=== PATIENT | female | born 1950 | race Caucasian/White ===

== ENCOUNTER → 2021-12-06 11:09 | Outpatient (CLI) | payer MEDICARE, SELFPAY ==
--- NOTE | ~2021-12-06 | XR_ITS ---
EXAMINATION: XR shoulder RT min 2V DATE: 12/06/2021 12:19 INDICATION: Acute onset right shoulder pain TECHNIQUE: AP internally and externally rotated, AP oblique externally rotated and axillary views of the right shoulder were obtained. COMPARISON: None FINDINGS: Old healed mid diaphyseal fracture of the right clavicle which is healed with 35 degrees apex cephala d angulation. Alignment is otherwise normal. No other fractures identified. Glenohumeral joint is nor mal. Mild acromioclavicular osteoarthritis. Soft tissues are unremarkable. The visualized portions of the lungs are clear. IMPRESSION: Mild right acromioclavicular osteoarthritis and old healed right clavicle fracture. Reviewed, dictated and finalized at location B. IMPRESSION: Mild right acromioclavicular osteoarthritis and old healed right clavicle fract ure.
--- NOTE | ~2021-12-06 | XR_ITS ---
XR_[id number]_CR 12/06/2021 12:19 Indication: Neck pain Procedure: 3 views cervical spine Comparison: No prior studies for comparison. Findings: There is degenerative disc disease at C3-4, C4-5, C5-6 and C6-7. There is straightening of cervical lordosis with degenerative retrolisthesis at C4-5. No prevertebral soft tissue swelling. Jacobo g apices are normal. Odontoid process within normal limits. Impression: 1: Moderate cervical spondylosis. Reviewed, dictated and finalized at location A. Impression: 1: Moderate cervical spondylosis.
--- NOTE | ~2021-12-06 | XR_ITS ---
EXAMINATION: XR shoulder LT min 2V DATE: 12/06/2021 12:19 INDICATION: Acute onset left shoulder pain TECHNIQUE: AP internally and externally rotated, AP oblique externally rotated and axillary views of the left shoulder were obtained. COMPARISON: None FINDINGS: Normal alignment. No fracture. Glenohumeral joint is normal. Mild acromioclavicular osteoarthritis. Soft tissues are unremarkable. Visualized portion of the lungs are clear. IMPRESSION: Mild left acromioclavicular osteoarthritis. Reviewed, dictated and finalized at location B.
== END ==
PROVIDERS: PCP Family Medicine; Visit Provider Family Medicine
DX: M54.9 Dorsalgia, unspecified (principal); M25.511 Pain in right shoulder; M25.512 Pain in left shoulder; M47.812 Spondylosis without myelopathy or radiculopathy, cervical region; M19.012 Primary osteoarthritis, left shoulder; M19.011 Primary osteoarthritis, right shoulder; Z87.81 Personal history of (healed) traumatic fracture
CPT/HCPCS: 72040; 73030

== ENCOUNTER → 2022-02-05 15:16 | Outpatient (CLI) | payer MEDICARE, SELFPAY ==
--- NOTE | ~2022-02-05 | MM_ITS ---
EXAMINATION: MM screening clifford BI w dipti HISTORY: Screening mammogram; status post left partial mastectomy for breast cancer TECHNIQUE: Craniocaudal and mediolateral oblique 3-D tomosynthesis images were obtained and synthetic 2-D images were generated. CAD analysis was submitted and interpreted. COMPARISON: 02/02/2019 MRI bilateral breast examination 12/17/2018 bilateral diagnostic mammography and complete left breast ultrasound 11/19/2017 bilateral screening mammogram BREAST PARENCHYMAL COMPOSITION: The breasts are heterogeneously dense, which may obscure small masses . FINDINGS: Stable asymmetry and retraction in the upper outer quadrant of the left breast since 11/20/19 18. There is no evidence of suspicious mass, calcification, or new architectural distortion to sugges t malignancy in either breast. There has been no suspicious interval change. IMPRESSION: 1. No mammographic evidence of malignancy. 2. Recommend routine screening mammography in one year. BI-RADS Category 2: Benign finding(s). Reviewed, dictated and finalized at location A.
== END ==
PROVIDERS: PCP Family Medicine; Visit Provider Family Medicine
DX: Z12.31 Encounter for screening mammogram for malignant neoplasm of breast (principal)
CPT/HCPCS: 77063; 77067

== ENCOUNTER 2022-03-26 11:27 | Observation (INO) | payer MEDICARE, SELFPAY ==
[2022-03-26] VITALS (23 sets, daily range): BP systolic 122–225; BP diastolic 52–90; PULSE 58–91; RESP 12–27; TEMP 36.4–36.6; O2SAT 98–100; BMI 24.5
--- NOTE | ~2022-03-26 | US_ITS ---
EXAMINATION: US retroperitoneal duplex ltd DATE: 03/27/2022 09:39 INDICATION: Hypertension. TECHNIQUE: Multiple grayscale, color Doppler, and pulsed Doppler images of the kidneys and renal zoya aparna were obtained. COMPARISON: CT abdomen and pelvis 03/14/2012 FINDINGS: The aorta peak systolic velocity is 117 cm/s. The right renal artery peak systolic velocity is 99 cm/ s in the proximal segment, 119 cm/s in the mid segment, and 119 cm/s in the distal segment. The left renal artery peak systolic velocity is 73 cm/s in the proximal segment, 97 cm/s in the mid segment, a nd 68 cm/s in the distal segment. IMPRESSION: 1. No Doppler evidence of renal artery stenosis. The prior CT similarly shows no significant renal a rtery stenosis. Reviewed, dictated and finalized at location A. IMPRESSION: 1. No Doppler evidence of renal artery stenosis. The prior CT similarly shows no significant renal artery stenosis.
--- NOTE | ~2022-03-26 | XR_ITS ---
EXAMINATION: XR chest 2V DATE: 03/26/2022 13:44 INDICATION: Dizziness. High blood pressure. TECHNIQUE: Frontal and lateral views of the chest were obtained. COMPARISON: Chest single view 09/19/2005, CT abdomen and pelvis 03/14/2012 FINDINGS: There is mild scarring at right lung apex. No pleural effusion or pneumothorax. The heart s ize is normal. There are gallstones in the gallbladder. IMPRESSION: 1. Mild scarring at right lung apex. 2. Cholelithiasis. Reviewed, dictated and finalized at location A.
--- NOTE | 2022-03-26 13:01 | ECG_ITS ---
Measurements Intervals [place] Rate: 61 P: 31 RI: 147 QRS: -6 QRSD: 93 T: 10 QT: 418 QTc: 422 Interpretive Statements SINUS RHYTHM VOLTAGE CRITERIA FOR LVH MINIMAL Q WAVES- HIGH LATERAL LEADS BORDERLINE T WAVE ABNORMALITY- INFERIOR LEADS BORDERLINE ECG NO PREVIOUS ECG AVAILABLE FOR COMPARISON Electronically Signed On 03-26-2022 14:25:33 CDT by Eze Ly D.O.
[2022-03-26 13:04] LABS: Basophils Absolute Auto 0.1 K/mm3 (0.0-0.1); Basophils Percent Auto 0.6 % (0.2-1.2); Eosinophils Absolute Auto 0.2 K/mm3 (0-0.3); Eosinophils Percent Auto 2.2 % (0-4.4); Hemoglobin 12.2 g/dL (12.0-15.0); Immature Granulocyte Absolute 0.05 K/mm3 (0.00-0.031); Immature Granulocyte Percent A 0.5 % (0-0.5); Lymphocytes Absolute Auto 3.57 K/mm3 (0.9-3.2); Lymphocytes Percent Auto 33.1 % (18.3-44.2); Mean Corpuscular Hemoglobin 28.2 pg (26-34); Mean Corpuscular Volume 85.6 fl (80-100); Mean Platelet Volume 9.8 fl (7.4-10.4); Monocytes Absolute Auto 0.9 K/mm3 (0.1-0.6); Monocytes Percent Auto 8.1 % (2.6-8.5); Neutrophils Percent Auto 55.5 % (45.5-73.1); Platelet Count Result 283 k/mm3 (150-375); Red Blood Count 4.32 M/mm3 (4.2-5.4); Red Cell Distribution Width 13.5 % (11.5-14.5); White Blood Count 10.8 K/mm3 (4.5-10.0)
[2022-03-26 13:13] LABS: Alanine Aminotransferase 34 U/L (6-35); Albumin Level 4.5 g/dL (3.5-5.1); Alkaline Phosphatase 121 U/L (38-126); Anion Gap 10 mmol/L (8-16); Aspartate Amino Transferase 32 U/L (14-36); Bilirubin,Total 0.3 mg/dL (0.2-1.3); Blood Urea Nitrogen 14 mg/dL (7-17); Calcium 9.8 mg/dL (8.4-10.2); Carbon Dioxide 25 mmol/L (22-30); Chloride 96 mmol/L (98-107); Estimated Glomerular Filt Rate > 60; Glucose 95 mg/dL (65-110); Potassium 4.3 mmol/L (3.4-5.0); Sodium 131 mmol/L (137-145)
[2022-03-26] MEDS: hydrALAZINE HCL 20 MG/ML VIAL 10 MG IV PUSH (13:36)
--- NOTE | 2022-03-26 14:20 | PC.NURSE ---
vorb for zofran 4 mg ivp x1 from dr bull
[2022-03-26] MEDS: ONDANSETRON INJ 4 MG/2 ML VIAL IV PUSH (14:21)
--- NOTE | 2022-03-26 15:12 | ED.GENADULT ---
HPI - General Adult General Chief complaint: Recheck/Abnormal Lab/Rx Stated complaint: high BP Time Seen by Provider: 03/26/22 12:32 History of Present Illness HPI narrative: Patient is a 71-year-old female who presents ER with elevated blood pressures. She was at the dentist and found that her blood pressure was in the 220s. She reports over the last 3 days she has been fell little dizzy and foggy. Her memory is not as sharp. No change in vision or hearing. No chest pain or shortness of breath patient recently was started on prednisone for arthralgia and myalgias and her statin was discontinued. She is taking 5 mg in the morning 5 mg in the evening of the prednisone. No history of hypertension. Related Data Home Medications Medication Instructions Recorded Confirmed cholecalciferol (vitamin D3) 25 25 mcg PO DAILY 03/14/22 mcg (1,000 unit) capsule coQ10 (ubiquinol) 100 mg capsule 100 mg PO BID 03/14/22 ezetimibe 10 mg tablet 10 mg PO DAILY 03/14/22 krill oil 500 mg capsule mg PO 03/14/22 levothyroxine 13 mcg capsule 13 mcg PO DAILY 03/14/22 mecobalamin (vitamin B12) 1,000 1,000 mcg sublingual DAILY 03/14/22 mcg disintegrating tablet,sublingual vitamin E mixed 400 unit capsule unit PO 03/14/22 Allergies Allergy/AdvReac Type Severity Reaction Status Date / Time ANDRAE Inhibitors Allergy Unknown Unknown Verified 03/20/22 11:01 amoxicillin Allergy Unknown Unknown Verified 03/20/22 11:01 azithromycin Allergy Unknown Unknown Verified 03/20/22 11:01 cephalexin Allergy Unknown Unknown Verified 03/20/22 11:01 clarithromycin Allergy Unknown Unknown Verified 03/20/22 11:01 Penicillins Allergy Unknown Unknown Verified 03/20/22 11:01 Review of Systems Review of Systems: All systems reviewed & are unremarkable except as noted in HPI and below Constitutional: Constitutional: Denies chills, Reports fatigue and Denies fever(s) Eyes: Eyes: Denies change in vision ENT: Denies nasal congestion and Denies sore throat Cardiovascular: Cardiovascular: Denies chest pain, Denies rapid heart rate and Denies radiating jaw, neck or arm pain Respiratory: Respiratory: Denies cough, Denies dyspnea and Denies wheezing Gastrointestinal: Gastrointestinal: Denies abdominal pain, Denies nausea and Denies vomiting Neurologic: Reports dizziness, Denies headache(s), Denies focal weakness and Denies numbness PMFSH Past Medical History Medical History (Updated 03/26/22 @ 15:18 by Israel Mendez MD) Cancer Counseling on health promotion and disease prevention Encounter for medication management Inflammatory arthritis Myalgia Rotator cuff arthropathy Thyroid disorder Family History Family History Father Family history of lung cancer Mother Family history of malignant neoplasm of breast in first degree relative Social History Social History Smoking status: Never smoker Second hand tobacco smoke exposure: No Alcohol intake: never Exam Narrative: GENERAL: Well-appearing, well-nourished, and in no acute distress. HEAD: Normocephalic, atraumatic. EYES: PERRL and EOMI. ENT: Mucous membranes moist. CHEST: Clear to auscultation. No respiratory distress. HEART: Regular rate and rhythm. Normal peripheral pulses. ABDOMEN: Soft, nontender, nondistended. EXTREMITIES: Normal range of motion. No edema. SKIN: Warm, dry, no rash. NEURO: Alert and oriented x3. PSYCH: Normal mood and affect. Course Course Emergency Course: Patient resting comfortably. She did have an episode of headache and nausea after receiving hydralazine which dropped her blood pressure about 90 points. Patient will be admitted to the hospitalist service for observation. Vital Signs Vital signs: Vital Signs Temperature 97.7 F 03/26/22 11:50 Pulse Rate 77 03/26/22 11:50 Respiratory Rate 18 03/26/22 11:50 Blood Pressure 225/84 H 0
--- NOTE | 2022-03-26 16:15 | PC.NURSE ---
This patient, Kathrine Casper, was admitted to 3 [facility] Surg Room 319-01. Patient/family oriented to hospital policies and general routines including ID bracelet, bed and alarms, visiting hours, pain management, procedures, bathroom and other care routines, personal items, smoking policy, room service/diet, and visiting hours. Information on how to activate the Rapid Response Team has been discussed. Patient/Family are encouraged to report perceived risks to care and to ask questions if they do not understand what they are told or what they should do.
--- NOTE | 2022-03-26 18:10 | PM.IMHP ---
H&P: HPI History of Present Illness Date/Time: 03/26/22 18:10 Chief Complaint: High blood pressure. Narrative: This is a very pleasant 71-year-old female with hypothyroidism and dyslipidemia who presented to the emergency department for evaluation of high blood pressure with a reported reading of 214/111 at her dentist's office this morning. She is not on medication for hypertension though she admits that she typically has high normal blood pressure with readings that frequently run in the 140s over 80s. Over the last several days she has felt a bit forgetful and she has noticed some aural fullness and facial flushing. She has also been having posterior occipital headaches though they have not been severe. 6 days ago she was started on a total of prednisone 10 milligrams daily by a gin clerk for arthralgias and myalgias the several months. Initially though symptoms were attributed to statin use however they continued albeit improved after cessation of the medication. Aside from the prednisone she has not been started on any new medications recently and she has not been using adcl-bvb-jgrcqly decongestants or NSAIDs. She also denies stimulant and alcohol use. She does eat a high sodium diet and drinks perhaps 1 cup of coffee a day if that. Her thyroid levels were checked recently and they were well within normal limits, per patient report. Her weight has remained stable. She has not felt any more stressed than usual. She has not had severe headaches, vertigo, acute visual changes, sweats, focal weakness, paresthesias, facial droop, dysarthria, or dysphagia. She has not had exertional chest pain however though over the last couple of months she has noticed that she is getting slightly winded when going up the steps at [employer] but nothing significant. She has no concerns for sleep apnea. No syncope or near syncope. At the time of my evaluation she is resting comfortably and her only complaint is that of a continued, mild headache. Of note she was given hydralazine 10 milligrams IV push x1 in the emergency department which caused her blood pressure to drop to 131/66 which made her feel poorly for a period of time with worsening headache and nausea. She feels much better at this time. Review of Systems Review of Systems: Twelve systems were reviewed and are negative except for as per HPI. [facility] Past Medical History Medical History (Updated 03/26/22 @ 21:35 by Mei Perrin PA-C) Cancer of left breast Status post chemoradiation. Cholelithiasis Dyslipidemia Statin intolerance. Hypothyroidism Surgical History Surgical History (Updated 03/26/22 @ 21:32 by Mei Perrin PA-C) History of appendectomy History of laparoscopy For tubal regular. History of lumpectomy Family History Family History Father Family history of lung cancer Mother Family history of malignant neoplasm of breast in first degree relative Sibling Primary pancreatic cancer Diabetes mellitus Social History Social History (Updated 03/26/22 @ 21:33 by Mei Perrin PA-C) Social History: Surrogate medical decision maker: José Antonio (spouse) trey Barrett (son). Code status: Full code. Smoking status: Never smoker Second hand tobacco smoke exposure: No Alcohol intake: never Drinks per week: 0 Substance use: never Substance use type: does not use Additional living arrangements comments: The patient lives with her in [place]. 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 Spiritual care concerns: No Meds Home Medications and Allergies Home Medications Medication Instructions Recorded Confirmed Type cholecalciferol (vitamin D3) 25 25 mcg PO DAILY 03/14/22 03/26/22 History mcg (1,000 unit) capsule coQ10 (ubiquinol) 100 mg capsule 100 mg PO DAILY 03/14/22 03/26/22 History ezetimibe 10 mg tablet 10 m
[2022-03-26 20:11] LABS: Thyroid Stimulating Hormone Reflex 0.458 uIU/mL (0.465-4.68)
[2022-03-26] MEDS: ACETAMINOPHEN 325 MG TABLET 650 MG PO (20:45)
[2022-03-26 23:02] LABS: Free T4 Free Thyroxine Reflex 1.61 ng/dL (0.78-2.19)
[2022-03-27] VITALS: BP 142/66; PULSE 70; PULSE 72; RESP 16; TEMP 36.4; O2SAT 99
[2022-03-27 04:00] VITALS: BP 140/73; PULSE 59; PULSE 66; RESP 14; TEMP 36.2; O2SAT 98
[2022-03-27] MEDS: LEVOTHYROXINE SODIUM 12.5 MCG TABLET PO (06:22)
[2022-03-27 06:53] LABS: Hematocrit 40.1 % (37.0-47.0); Hemoglobin 12.7 g/dL (12.0-15.0); Mean Corpuscular HGB Conc 31.7 g/dl (32-36); Mean Corpuscular Hemoglobin 27.6 pg (26-34); Mean Corpuscular Volume 87.2 fl (80-100); Mean Platelet Volume 9.9 fl (7.4-10.4); Platelet Count Result 296 k/mm3 (150-375); Red Cell Distribution Width 13.9 % (11.5-14.5); White Blood Count 7.7 K/mm3 (4.5-10.0)
[2022-03-27 07:11] LABS: Alanine Aminotransferase 27 U/L (6-35); Albumin Level 4.1 g/dL (3.5-5.1); Alkaline Phosphatase 101 U/L (38-126); Anion Gap 11 mmol/L (8-16); Aspartate Amino Transferase 28 U/L (14-36); Bilirubin,Total 0.4 mg/dL (0.2-1.3); Blood Urea Nitrogen 12 mg/dL (7-17); Calcium 9.3 mg/dL (8.4-10.2); Carbon Dioxide 25 mmol/L (22-30); Chloride 96 mmol/L (98-107); Estimated Glomerular Filt Rate > 60; Glucose 88 mg/dL (65-110); Magnesium 2.2 mg/dL (1.6-2.3); Potassium 4.3 mmol/L (3.4-5.0); Sodium 132 mmol/L (137-145)
[2022-03-27 07:59] VITALS: BP 133/77; PULSE 74; RESP 18; TEMP 36.8; O2SAT 97
[2022-03-27 08:00] VITALS: PULSE 71
[2022-03-27] MEDS: EZETIMIBE 10 MG TABLET PO (08:33)
[2022-03-27 10:34] LABS: Total Triiodothyronine (T3) 1.02 NG/ML (0.97-1.69)
[2022-03-27 11:53] VITALS: BP 146/73; PULSE 87; RESP 16; TEMP 36.8; O2SAT 100
[2022-03-27 12:00] VITALS: PULSE 91
--- NOTE | 2022-03-27 12:31 | PM.DS ---
DS: Admitting Diagnosis Discharge Date 03/27/22 Admitting Diagnosis (1) Hypertensive urgency: ?Code(s): I16.0 - Hypertensive urgency ?Status:?Acute (2) Inflammatory arthritis: ?Code(s): M19.90 - Unspecified osteoarthritis, unspecified site ?Status:?Acute (3) Dyslipidemia: ?Code(s): E78.5 - Hyperlipidemia, unspecified ?Status:?Acute (4) Hypothyroidism: ?Code(s): E03.9 - Hypothyroidism, unspecified ?Status:?Acute DS: Discharge Diagnosis Discharge Diagnosis (1) Hypertensive urgency: Code(s): I16.0 - Hypertensive urgency Status: Acute (2) Inflammatory arthritis: Code(s): M19.90 - Unspecified osteoarthritis, unspecified site Status: Acute (3) Dyslipidemia: Code(s): E78.5 - Hyperlipidemia, unspecified Status: Acute (4) Hypothyroidism: Code(s): E03.9 - Hypothyroidism, unspecified Status: Acute DS: Summary Hospital Course Reason for hospitalization: Chief Complaint: High blood pressure. Narrative: This is a very pleasant 71-year-old female with hypothyroidism and dyslipidemia who presented to the emergency department for evaluation of high blood pressure with a reported reading of 214/111 at her dentist's office this morning. She is not on medication for hypertension though she admits that she typically has high normal blood pressure with readings that frequently run in the 140s over 80s. Over the last several days she has felt a bit forgetful and she has noticed some aural fullness and facial flushing. She has also been having posterior occipital headaches though they have not been severe. 6 days ago she was started on a total of prednisone 10 milligrams daily by a prior authorization technician for arthralgias and myalgias the several months. Initially though symptoms were attributed to statin use however they continued albeit improved after cessation of the medication. Aside from the prednisone she has not been started on any new medications recently and she has not been using kfsb-nez-fktgnlm decongestants or NSAIDs. She also denies stimulant and alcohol use. She does eat a high sodium diet and drinks perhaps 1 cup of coffee a day if that. Her thyroid levels were checked recently and they were well within normal limits, per patient report. Her weight has remained stable. She has not felt any more stressed than usual. She has not had severe headaches, vertigo, acute visual changes, sweats, focal weakness, paresthesias, facial droop, dysarthria, or dysphagia. She has not had exertional chest pain however though over the last couple of months she has noticed that she is getting slightly winded when going up the steps at [employer] but nothing significant. She has no concerns for sleep apnea. No syncope or near syncope. At the time of my evaluation she is resting comfortably and her only complaint is that of a continued, mild headache. Of note she was given hydralazine 10 milligrams IV push x1 in the emergency department which caused her blood pressure to drop to 131/66 which made her feel poorly for a period of time with worsening headache and nausea. She feels much better at this time. Hospital Course: 71-year-old female with no known past medical history of hypertension , per patient on steroid therapy for RA , who was at her dentist office when she was found to have elevated blood pressure. Patient was given hydralazine in the ER with correction of her blood pressure. No further medications were required during her hospitalization. She was monitored overnight and discharged home the following day. After careful discussion with the patient it is decided that she will return to her primary care physician to discuss starting blood pressure medication. she will keep a journal for the next 5 days with a.m. mid day and p.m. blood pressures to take to her primary to assist with decision making. Patient is discharged home in stable condition with indications to follow-up with [facility]
[2022-04-01 16:42] LABS: Creatinine, Urine 63 mg/dL (20-275); Metanephrine, Total Urine 629 mcg/g cr (149-603); Metanephrine, Urine 181 mcg/g cr (21-153); Normetanephrine, Urine 448 mcg/g cr (108-524)
== END 2022-03-27 13:50 | disposition home or self-care (01) ==
LOC: ANHED 15:18 → ANH3MEDSUR 17:06
PROVIDERS: Emergency Medicine; Physician Assistant; Admitting Provider Internal Medicine; Emergency Provider Emergency Medicine; PCP Family Medicine; Visit Provider Hospitalist
DX: I16.0 Hypertensive urgency (principal); M19.90 Unspecified osteoarthritis, unspecified site; E78.5 Hyperlipidemia, unspecified; E03.9 Hypothyroidism, unspecified; R42 Dizziness and giddiness; E07.9 Disorder of thyroid, unspecified; J98.4 Other disorders of lung; K80.20 Calculus of gallbladder without cholecystitis without obstruction; Z85.3 Personal history of malignant neoplasm of breast; Z92.3 Personal history of irradiation; Z79.52 Long term (current) use of systemic steroids; Z79.899 Other long term (current) drug therapy; Z80.3 Family history of malignant neoplasm of breast; Z80.1 Family history of malignant neoplasm of trachea, bronchus and lung; Z80.0 Family history of malignant neoplasm of digestive organs
CPT/HCPCS: 36415; 71046; 80053; 82088; 82384; 82570; 83735; 83835; 84439; 84443; 84480; 85025; 85027; 93005; 93976; 96374; 96375; 99285; A9270; G0378; J0360; J2405

== ENCOUNTER 2022-03-28 18:05 | Emergency (ER) | payer MEDICARE, SELFPAY ==
[2022-03-28 18:22] VITALS: BP 175/84; PULSE 85; RESP 16; TEMP 36.8; O2SAT 100
[2022-03-28 23:55] VITALS: BP 193/87; PULSE 73; RESP 18; O2SAT 100
[2022-03-29 00:17] VITALS: BP 180/78; O2SAT 99
--- NOTE | 2022-03-29 00:37 | ED.RECABL ---
HPI - Recheck/Abnormal Lab/Rx General Chief Complaint: Recheck/Abnormal Lab/Rx Stated Complaint: htn, d/c yesterday Time Seen by Provider: 03/29/22 00:04 Source: patient and old records reviewed Mode of arrival: ambulatory Limitations: no limitations History of Present Illness HPI narrative: Patient is a 71-year-old female who presents the ED with report of elevated blood pressures. Patient was recently seen in the ED for elevated blood pressure without HTN. She was given a dose of 10 mg dose of IV hydralazine in the ED which dropped her pressure significantly. Then admitted to the hospital for observation. Elevated blood pressures were thought to be result of patient recently being on prednisone for her rheumatoid arthritis. She had taken 10 mg of prednisone x6 days. This has since been held. She was not started on any oral antihypertensives as her blood pressure stabilized throughout hospitalization without further intervention. ED work-up was unremarkable at that time. Patient was told to return to the ED if she experience systolic blood pressures greater than 180. Patient states this morning her pressures were normotensive in the 140s systolic, but began becoming elevated after eating lunch. She was checking her blood pressure every 30 minutes or so. She then decided to come into the ED. Patient states she has otherwise been feeling fine. Occasional headaches, but no chest pain, difficulty breathing, dizziness, vision changes, nausea, vomiting, abdominal pain. Related Data Home Medications Medication Instructions Recorded Confirmed cholecalciferol (vitamin D3) 25 25 mcg PO DAILY 03/14/22 03/26/22 mcg (1,000 unit) capsule coQ10 (ubiquinol) 100 mg capsule 100 mg PO DAILY 03/14/22 03/26/22 ezetimibe 10 mg tablet 10 mg PO DAILY 03/14/22 03/26/22 krill oil 500 mg capsule 500 mg PO DAILY 03/14/22 03/26/22 levothyroxine 13 mcg capsule 13 mcg PO DAILY 03/14/22 03/26/22 mecobalamin (vitamin B12) 1,000 1,000 mcg sublingual DAILY 03/14/22 03/26/22 mcg disintegrating tablet,sublingual vitamin E mixed 400 unit capsule 400 unit PO DAILY 03/14/22 03/26/22 Allergies Allergy/AdvReac Type Severity Reaction Status Date / Time amoxicillin Allergy Unknown Hives Verified 03/29/22 00:04 Penicillins Allergy Unknown Hives Verified 03/29/22 00:04 Review of Systems Review of Systems: CONSTITUTIONAL: Denies fever, chills, or sweats. EYES: Denies visual changes. CARDIOVASCULAR: Denies chest pain, palpitations. RESPIRATORY: Denies dyspnea. GASTROINTESTINAL: Denies abdominal pain, nausea, vomiting, or diarrhea. GENITOURINARY: Denies dysuria or hematuria. NEUROLOGIC: Reports occasional headaches. Denies numbness or weakness. All systems reviewed & are unremarkable except as noted in HPI and below PMFSH Past Medical History Medical History Cancer of left breast Status post chemoradiation. Cholelithiasis Dyslipidemia Statin intolerance. Hypothyroidism Surgical History Surgical History History of appendectomy History of laparoscopy For tubal regular. History of lumpectomy Family History Family History Father Family history of lung cancer Mother Family history of malignant neoplasm of breast in first degree relative Sibling Primary pancreatic cancer Diabetes mellitus Social History Social History Social History: Surrogate medical decision maker: José Antonio (spouse) trey Barrett (son). Code status: Full code. Smoking status: Never smoker Second hand tobacco smoke exposure: No Alcohol intake: never Drinks per week: 0 Substance use: never Substance use type: does not use Additional living arrangements comments: The patient lives with her in [place]. Additional occ
--- NOTE | 2022-03-29 00:40 | ECG_ITS ---
Measurements Intervals [place] Rate: 72 P: 24 MI: 135 QRS: -19 QRSD: 94 T: -6 QT: 386 QTc: 424 Interpretive Statements SINUS RHYTHM LEFT VENTRICULAR HYPERTROPHY MINIMAL Q WAVES- HIGH LATERAL LEADS BORDERLINE T WAVE ABNORMALITY- INFERIOR LEADS BASELINE ARTIFACT- I, III BORDERLINE ECG COMPARED TO ECG 03/26/2022 13:17:08 NO SIGNIFICANT CHANGES Electronically Signed On 03-29-2022 6:35:19 CDT by Eze Ly D.O.
[2022-03-29 00:55] VITALS: BP 189/76; PULSE 78; RESP 18; O2SAT 100
[2022-03-29 01:01] VITALS: BP 169/73
[2022-03-29 01:34] LABS: Appearance Urine Clear (Clear); Bilirubin Urine Negative (Negative); Blood Urine Trace-lysed (Negative); Color Urine Yellow (Yellow); Glucose Urine UA Negative (Negative); Ketones Urine Negative (Negative); Leukocyte Esterase Ur Trace LEU/UL (Negative); Nitrate Urine Negative (Negative); Protein Urine Negative (Negative); Urobilinogen Urine 0.2 mg/dL (<2.0); pH Urine 6.5 (5.0-9.0)
[2022-03-29 01:45] LABS: Bacteria Urine Trace /hpf; Mucus Urine Rare /lpf; RBC Urine 0-2 /hpf (0-2); Squamous Epithelial Cell Urine Rare /hpf (Few); WBC Urine 0-3 /hpf
[2022-03-29 01:46] LABS: Add Urine Microscopic? YES
[2022-03-29] MEDS: lisinopriL 5 MG TABLET PO (01:59)
[2022-03-29 02:18] VITALS: BP 178/83; PULSE 72; RESP 18; O2SAT 99
== END 2022-03-29 01:56 | disposition home or self-care (01) ==
PROVIDERS: Physician Assistant; Emergency Provider Emergency Medicine; PCP Family Medicine
DX: I10 Essential (primary) hypertension (principal); M06.9 Rheumatoid arthritis, unspecified; E78.5 Hyperlipidemia, unspecified; E03.9 Hypothyroidism, unspecified; Z85.3 Personal history of malignant neoplasm of breast; I51.7 Cardiomegaly; R94.31 Abnormal electrocardiogram [ECG] [EKG]
CPT/HCPCS: 81001; 93005; 99283; A9270

== ENCOUNTER → 2022-06-15 15:07 | Outpatient (CLI) | payer MEDICARE, SELFPAY ==
--- NOTE | ~2022-06-15 | XR_ITS ---
EXAMINATION: XR foot LT standing 2V DATE: 03/20/2022 13:35 INDICATION: Unspecified osteoarthritis, unspecified site. TECHNIQUE: 2 views of left foot standing were obtained. COMPARISON: None. FINDINGS: Bone alignment is normal. No fracture. There is mild osteoarthritis of first metatarsophala ngeal joint, talonavicular joint, and some of the interphalangeal joints. IMPRESSION: 1. Mild polyarticular osteoarthritis. Reviewed, dictated and finalized at location A.
--- NOTE | ~2022-06-15 | XR_ITS ---
EXAMINATION: XR hand BI arthritis min 3V DATE: 03/20/2022 13:35 INDICATION: Unspecified osteoarthritis, unspecified site. TECHNIQUE: 4 views of right hand and 4 views of left hand on a total of 7 radiographs were obtained. COMPARISON: None. FINDINGS: RIGHT HAND: Bone alignment is normal. No fracture. There is severe osteoarthritis of triscaphe joint and mild osteoarthritis of first carpometacarpal joint. There is moderate osteoarthritis of first-thi rd metacarpophalangeal joints. There is osteoarthritis of all of the interphalangeal joints, severe a t first interphalangeal joint and fifth distal interphalangeal joint and moderate at second and third distal interphalangeal joints. LEFT HAND: Bone alignment is normal. No fracture. There is severe osteoarthritis of triscaphe joint a nd moderate osteoarthritis of first carpometacarpal joint. There is moderate osteoarthritis of first metacarpophalangeal joint and mild osteoarthritis of second metacarpophalangeal joint. There is osteo arthritis of all of the interphalangeal joints, moderate at third proximal interphalangeal joint and fourth distal interphalangeal joint and severe at second and third distal interphalangeal joints. IMPRESSION: 1. Polyarticular osteoarthritis. Reviewed, dictated and finalized at location A.
--- NOTE | ~2022-06-15 | XR_ITS ---
EXAMINATION: XR foot RT standing 2V DATE: 03/20/2022 13:35 INDICATION: Unspecified osteoarthritis, unspecified site. TECHNIQUE: 2 views of right foot standing were obtained. COMPARISON: None. FINDINGS: Bone alignment is normal. No fracture. There is mild osteoarthritis of first metatarsophala ngeal joint and some of the interphalangeal joints. IMPRESSION: 1. Mild polyarticular osteoarthritis. Reviewed, dictated and finalized at location A.
== END ==
PROVIDERS: PCP Family Medicine; Visit Provider Internal Medicine
DX: M15.9 Polyosteoarthritis, unspecified (principal)
CPT/HCPCS: 73130; 73620

== ENCOUNTER → 2023-03-05 10:30 | Outpatient (CLI) | payer MEDICARE, SELFPAY ==
--- NOTE | ~2023-03-05 | MM_ITS ---
EXAMINATION: MM screening [facility] BI w dipti HISTORY: Screening mammogram TECHNIQUE: Craniocaudal and mediolateral oblique 3-D tomosynthesis images were obtained and synthetic 2-D images were generated. CAD analysis was submitted and interpreted. COMPARISON: 02/05/2022 bilateral screening mammogram 02/02/2019 MRI of the breasts 12/17/2018 diagnostic bilateral mammogram and complete left breast ultrasound examination 11/19/2017 bilateral screening mammogram BREAST PARENCHYMAL COMPOSITION: The breasts are heterogeneously dense, which may obscure small masses . FINDINGS: There is stable postoperative change of the left breast from partial mastectomy for breast malignancy. There is no evidence of suspicious mass, calcification, or new architectural distortion t o suggest malignancy in either breast. There has been no suspicious interval change. IMPRESSION: 1. Status post left partial mastectomy for breast cancer. No mammographic evidence of malignancy. 2. Recommend routine screening mammography in one year. BI-RADS Category 2: Benign finding(s). Reviewed, dictated and finalized at location A. IMPRESSION: 1. Status post left partial mastectomy for breast cancer. No mammographic evide nce of malignancy. 2. Recommend routine screening mammography in one year. BI-RADS Category 2: Benign finding(s).
== END ==
PROVIDERS: PCP Family Medicine; Visit Provider Family Medicine
DX: Z12.31 Encounter for screening mammogram for malignant neoplasm of breast (principal); Z90.12 Acquired absence of left breast and nipple
CPT/HCPCS: 77063; 77067

== ENCOUNTER 2024-03-17 08:44 | Outpatient (CLI) | payer MEDICARE, SELFPAY ==
--- NOTE | ~2024-03-17 | MMUS_ITS ---
EXAMINATION: MM diagnostic [facility] BI w dipti, US breast BI complete HISTORY: History of left breast cancer. Left upper quadrant tenderness. TECHNIQUE: Additional 3-D tomosynthesis images of the breasts were performed and synthetic 2-D images were generated. CAD analysis was submitted and interpreted. High resolution bilateral complete breas t ultrasound was performed. COMPARISON: Comparison to multiple prior studies sequentially, with oldest reviewed study dated 02/2016. BREAST PARENCHYMAL COMPOSITION: Not dense: There are scattered areas of fibroglandular density. FINDINGS: MAMMOGRAPHIC FINDINGS: The breasts are stable. Stable distortion of the left breast, consistent with previous lumpectomy. No new masses, calcifications or architectural distortion in either breast to suggest malignancy. ULTRASOUND: Complete US of all 4 quadrants of the breast/s and retroareolar region was reviewed. No suspicious ma sses are identified in either breast to suggest malignancy. There is hypoechoic soft tissue with shad owing in the left breast at 1:00 in the area of previous surgical scar, unchanged from prior study. IMPRESSION: 1. No evidence for malignancy in either breast. 2. Routine yearly screening mammogram and regular clinical breast examination are recommended. BI-RADS Category 2: Benign finding(s). Reviewed, dictated and finalized at location B. IMPRESSION: 1. No evidence for malignancy in either breast. 2. Routine yearly screening mammogram and regular clinical breast examination a re recommended. BI-RADS Category 2: Benign finding(s).
== END 2024-03-17 08:45 | disposition home or self-care (01) ==
PROVIDERS: PCP Family Medicine; Visit Provider Family Medicine
DX: Z12.31 Encounter for screening mammogram for malignant neoplasm of breast (principal); Z85.3 Personal history of malignant neoplasm of breast
CPT/HCPCS: 76641; 77062; 77066; G0279